=== PATIENT | female | born 2000 | race African-American/Black ===

== ENCOUNTER 2021-11-05 01:22 | Emergency (ER) | payer OTHER ==
[~2021-11-05] VITALS: Ht 170.2 cm; Wt 86.1 kg
[2021-11-05 01:29] VITALS: BP 120/72
--- NOTE | 2021-11-05 01:50 | PHYS DOC ---
Past History Past Surgical History: No Surgical History Adult General Chief Complaint Chief Complaint: CHEST PAIN HPI HPI Patient is a very pleasant 21-year-old female, otherwise healthy at 5 months gestation who presents with a chief complaint of weird feelings in her chest. States that over the last few weeks she has had these episodes were she just gets a funny tingly feeling in her chest. Cannot identify any aggravating or alleviating factors. Denies any dyspnea on exertion, orthopnea, PND or edema. Denies any history of cardiac disease in herself or early cardiac disease in her family. States that currently she does not have any in the emergency department is otherwise asymptomatic. Denies any recent travels, traumas, illnesses, fevers, pain or trouble swallowing, abdominal pain, nausea, vomiting, diarrhea, dysuria, hematuria or blood in the stool. Denies any vaginal bleeding, discharge or pain and states she just saw her PRODUCT SAFETY MANAGER yesterday and all was well. Review of Systems Review of Systems Review of systems otherwise unremarkable except noted in HPI Allergies Allergies Allergies Coded Allergies Type Severity Reaction Last Updated Verified No Known Drug Allergies 11/05/21 No Physical Exam Physical Exam Constitutional: Well developed, well nourished, no acute distress, non-toxic appearance. [] HENT: Normocephalic, atraumatic, bilateral external ears normal, oropharynx moist, no oral exudates, nose normal. [] Eyes: conjunctiva normal, no discharge. [] Neck: Normal range of motion, no tenderness, supple, no stridor. [] Cardiovascular:Heart rate regular rhythm, no murmur [] EKG with a rate of 90, QRS of 82, QTc of 425, no STEMI Lungs & Thorax: Bilateral breath sounds clear to auscultation [] Abdomen: soft, no tenderness, no masses, no pulsatile masses, Doppler with heart rate at 150. [] Skin: Warm, dry, no erythema, no rash. [] Back: No tenderness, no CVA tenderness. [] Extremities: No tenderness, no cyanosis, no clubbing, ROM intact, no edema. [] Neurologic: Alert and oriented X 3, normal motor function, normal sensory f unction, able to sit, stand and walk without issue no focal deficits noted. [] Psychologic: Affect normal, judgement normal, mood normal. [] Current Patient Data Vital Signs Vital Signs Date Time Temp Pulse Resp B/P (MAP) Pulse Ox O2 Delivery O2 Flow Rate FiO2 11/05/21 01:29 101 24 120/72 (88) 99 Room Air EKG EKG [] Radiology/Procedures Radiology/Procedures [] Heart Score C/O Chest Pain: N/A Risk Factors: Risk Factors: DM, Current or recent (<one month) smoker, HTN, HLP, family history of CAD, obesity. Risk Scores: Risk Factors: DM, Current or recent (<one month) smoker, HTN, HLP, family history of CAD, obesity. Course & Med Decision Making Course & Med Decision Making Patient is a very pleasant 21-year-old female at 5 months gestation who presents with intermittent episodes of funny feelings in her chest over the last couple of weeks Vital signs not concerning. Physical exam noted above. EKG noted above. No history of cardiac events in her or early cardiac history in her family. Patient states that she does have a lot of stress and anxiety during this as she lost her last one. States she saw her PRODUCT SAFETY MANAGER today for checkup and all was well. No symptoms here in the emergency department. Reassured patient. Advised to follow-up in the morning with primary care physician and PRODUCT SAFETY MANAGER. Gave contact information for local primary care physician as they are having trouble getting into [place]. Gave strict return precautions to the ED. Family grateful, verbalized understanding and agreed with plan of discharge. [] Dragon Disclaimer Dragon Disclaimer This electronic medical record was generated, in whole or in part, using a voice recognition dictation system. Departure Departure: Impression: Primary Impression: Chest pain Additional Impression: Disposition: HOME / SELF CARE / HOMELESS Condition: STABLE Referrals: PCP,UNKNOWN (PCP) MAHESH BRIGGS Patient Instructions: ABCs of , Chest Pain (Nonspecific) Additional Instructions: Thank you for coming into the emergency department tonight and allowing us to take care of you. Please read the attached information carefully to go over things we discussed. It is very important that you follow-up in the morning with your PRODUCT SAFETY MANAGER and your primary care physician update on your ED visit and set up a follow-up as soon as possible for reevaluation. We attached the number of a local primary care physician at your request as we understand it is sometimes difficult to get into [place]. Please come back to the emergency department immediately with new or concerning symptoms as we discussed. Problem Qualifiers SUKHDEEP ROMERO MD Nov 05, 2021 01:50
--- NOTE | 2021-11-05 06:48 | EKG ---
[address] [address] Test Date: 2021-11-05 Test Time: 01:43:15 Pat Name: BRIE SNOW Department: Room: Gender: F Scrap Crusher: ERIKA : 2000 Requested By: SUKHDEEP ROMERO Order Number: [id number] Reading MD: Nadeem Rowley MD Measurements Intervals [place] Rate: 90 P: 55 KS: 132 QRS: 77 QRSD: 82 T: 52 QT: 344 QTc: 425 Interpretive Statements SINUS RHYTHM Electronically Signed On 11-10-2021 11:25:52 FLOOR COVERING INSTALLER by Nadeem Rowley MD
== END 2021-11-05 02:08 | disposition home or self-care (01) ==
LOC: ER 01:22
DX: O26.892 Other specified pregnancy related conditions, second trimester (principal); R07.89 Other chest pain; Z3A.20 20 weeks gestation of pregnancy
CPT/HCPCS: 93005; 99283; 99284

== ENCOUNTER 2021-12-14 19:12 | Emergency (ER) | payer OTHER ==
[~2021-12-14] VITALS: Ht 167.6 cm; Wt 90.1 kg
[2021-12-14 19:18] VITALS: BP 131/74
--- NOTE | 2021-12-14 19:29 | PHYS DOC ---
Past History Additional Past Medical Histor: preeclampsia (CHRISTINA RAJPUT APRN) Past Surgical History: No Surgical History (CHRISTINA RAJPUT APRN) Alcohol Use: None (CHRISTINA RAJPUT APRN) General Adult EDM: Chief Complaint: ABDOMINAL PAIN IN HPI: HPI: Patient is a 21-year-old female who presents to the emergency department today for right lower abdominal cramping and she reports she has not had any movement for the last 2 hours. She rates her abdominal cramping 3 out of 10. Patient reports that she is approximately 26 weeks . She is G2, P0. Her last menstrual period was in June. Her OB is through [facility] in [place]. Patient reports that she has no complications with this but with her previous she did have preeclampsia. She denies chest pain or shortness of breath. She is not hypertensive. Patient denies any vaginal bleeding or urinary symptoms. (CHRISTINA RAJPUT APRN) Review of Systems: Review of Systems: Respiratory: See HPI Cardiovascular: See HPI GI: See HPI : See HPI (CHRISTINA RAJPUT APRN) Allergies: Allergies: Allergies Coded Allergies Type Severity Reaction Last Updated Verified No Known Drug Allergies 11/05/21 No (CHRISTINA RAJPUT APRN) Physical Exam: PE: Constitutional: Well developed, well nourished, no acute distress, non-toxic appearance. [] HENT: Normocephalic, atraumatic, bilateral external ears normal, oropharynx moist, no oral exudates, nose normal. [] Eyes: PERRL, EOMI, conjunctiva normal, no discharge. [] Neck: Normal range of motion, no tenderness, supple, no stridor. [] Cardiovascular:Heart rate regular rhythm, no murmur [] Lungs & Thorax: Bilateral breath sounds clear to auscultation [] Abdomen: Bowel sounds normal, soft, no tenderness, no masses, no pulsatile masses. [] Skin: Warm, dry, no erythema, no rash. [] Back: Normal range of motion Extremities: No tenderness, no cyanosis, no clubbing, ROM intact, no edema. [] Neurologic: Alert and oriented X 3, normal motor function, normal sensory function, no focal deficits noted. [] Psychologic: Affect normal, judgement normal, mood normal. [] (CHRISTINA RAJPUT APRN) Current Patient Data: Labs: Laboratory Tests Test 12/14/21 19:42 Urine Collection Type Clean catch Urine Color Yellow Urine Clarity Clear Urine pH 7.0 Urine Specific [place] 1.020 Urine Protein Neg Urine Glucose (UA) Neg mg/dL Urine Ketones (Stick) Neg mg/dL Urine Blood Neg Urine Nitrite Neg Urine Bilirubin Neg Urine Urobilinogen Dipstick 0.2 mg/dL Urine Leukocyte Esterase Trace Urine RBC Occ /HPF Urine WBC 1-4 /HPF Urine Squamous Epithelial Cells Many /LPF Urine Bacteria Few /HPF Vital Signs: Vital Signs Date Time Temp Pulse Resp B/P (MAP) Pulse Ox O2 Delivery O2 Flow Rate FiO2 12/14/21 19:18 97.5 106 20 131/74 (93) 98 Room Air (CHRISTINA RAJPUT APRN) EKG: EKG: [] (CHRISTINA RAJPUT APRN) Radiology/Procedures: Radiology/Procedures: [] (CHRISTINA RAJPUT APRN) Heart Score: C/O Chest Pain: N/A Risk Factors: Risk Factors: DM, Current or recent (<one month) smoker, HTN, HLP, family history of CAD, obesity. Risk Scores: Score 0 - 3: 2.5% MACE over next 6 weeks - Discharge Home Score 4 - 6: 20.3% MACE over next 6 weeks - Admit for Clinical Observation Score 7 - 10: 72.7% MACE over next 6 weeks - Early Invasive Strategies (CHRISTINA RAJPUT APRN) Course & Med Decision Making: Course & Med Decision Making Pertinent Labs and Imaging studies reviewed. (See chart for details) Patient presents to the emergency department for right lower abdominal cramping that is mild she rates 3 out of 10 and no movement for the last 2 hours. Patient reports that she is approximately 26 weeks . Bedside ultrasound was performed and there is movement and heart rate which is 140 bpm. Patient denies any vaginal bleeding or vaginal discharge. Patient has a urinary tract infection which will be treated with an antibiotic. She is advised to increase fluids. Patient advised to follow-up with her CAREER DEVELOPER. T I discussed with patient all findings and diagnostic testing as well as the need to follow-up with PCP for further evaluation and treatment or return to the ER if any new or worsening symptoms. Strict return precautions were also discussed at length. Patient voiced understanding and agreement with the plan. Patient is hemodynamically stable at the time of disposition. (CHRISTINA RAJPUT APRN) Course & Med Decision Making Did not see or evaluate patient. Did not discuss patient with TIE IN MACHINE OPERATOR. Generally agree with TIE IN MACHINE OPERATOR's work-up and disposition per note (SUKHDEEP ROMERO MD) Dragon Disclaimer: Dragon Disclaimer: This electronic medical record was generated, in whole or in part, using a voice recognition dictation system. (CHRISTINA RAJPUT APRN) Departure Departure: Impression: Primary Impression: Urinary tract infection Qualified Codes: N30.00 - Acute cystitis without hematuria Disposition: HOME / SELF CARE / HOMELESS Condition: GOOD Referrals: PCP,UNKNOWN (PCP) Patient Instructions: ABCs of , - Urinary Tract Infection Additional Instructions: You are seen in the emergency department for abdominal pain and decreased movement. Bedside ultrasound did show movement and good heart rate. You were noted to have a urinary tract infection which will be treated with an antibiotic. Please start and finish the antibiotic completely. Increase your fluids. Follow-up with her CAREER DEVELOPER on Wednesday. As we discussed, as you progress to your you should be seen the facility which you are going to deliver if you have any concerns. Go to the emergency department if you develop worsening of your abdominal pain, high fevers refractory to treatment, intractable nausea or vomiting, no movement or decreased movement or vaginal bleeding. Scripts Cephalexin (KEFLEX) 500 Mg Capsule 1 CAP PO TID for UTI for 7 Days, #21 CAP 0 Refills Prov: CHRISTINA RAJPUT APRN 12/14/21 CHRISTINA RAJPUT APRN Dec 14, 2021 19:29 SUKHDEEP ROMERO MD Dec 14, 2021 21:19
[2021-12-14 20:57] LABS: BACTERIA,URINE FEW /HPF (0-FEW); CLARITY,URINE CLEAR; COLOR,URINE YELLOW; GLUCOSE,URINE NEG (NEG); NITRITE,URINE NEG (NEG); RBC,URINE OCC /HPF (0-2); SQUAMOUS EPITHELIAL CELL,UR MANY /LPF; UROBILINOGEN,URINE 0.2 mg/dL (0.2 mg/dL)
[2021-12-14] MEDS ORDERED: CEPH500C PO (21:12)
== END 2021-12-14 21:23 | disposition home or self-care (01) ==
LOC: ER 19:12
DX: O23.42 Unspecified infection of urinary tract in pregnancy, second trimester (principal); N30.00 Acute cystitis without hematuria; Z3A.26 26 weeks gestation of pregnancy
CPT/HCPCS: 81001; 87086; 99284